=== PATIENT | female | born 1985 | race African-American/Black ===

== ENCOUNTER 2018-01-27 22:40 | Inpatient (IN) | payer MEDICAID ==
[~2018-01-27] VITALS: Ht 157.5 cm; Wt 63.0 kg
--- NOTE | 2018-01-27 23:11 | NUR ---
DR. JEFFERSON AT BEDSIDE FOR MSE.
[2018-01-27] MEDS ORDERED: DOCU-141 PO (23:15)
[2018-01-27] MEDS ORDERED: TRAZ-182 PO (23:15)
[2018-01-27] MEDS ORDERED: SERT50TA PO (23:15)
[2018-01-27] MEDS ORDERED: QUET400T PO (23:15)
[2018-01-27] MEDS ORDERED: FOLI1TAB16 PO (23:15)
[2018-01-27] MEDS ORDERED: FERR325T28 PO (23:15)
[2018-01-27] MEDS ORDERED: SERT100T PO (23:15)
[2018-01-27] MEDS ORDERED: ONDA4TAB5 PO (23:15)
[2018-01-27] MEDS ORDERED: HYDR4TAB4 PO (23:15)
[2018-01-27] MEDS ORDERED: DIPH50CA37 PO (23:15)
[2018-01-27] MEDS ORDERED: ONDANSETRON ODT 4 MG TAB.RAPDIS ONE (23:27)
[2018-01-27] MEDS ORDERED: diphenhydrAMINE 50 MG/1 ML VIAL ONE (23:27)
[2018-01-27] MEDS ORDERED: HYDROMORPHONE 2 MG/1 ML DISP.SYRIN ONE (23:27)
[2018-01-27] MEDS ORDERED: ONDANSETRON ODT 4 MG TAB.RAPDIS SL ONE (23:30)
[2018-01-27] MEDS ORDERED: HYDROMORPHONE 1 MG/1 ML DISP.SYRIN IM ONE (23:30)
[2018-01-27] MEDS ORDERED: diphenhydrAMINE 50 MG/1 ML VIAL IM ONE (23:30)
[2018-01-27] MEDS ORDERED: LORAZEPAM 0.5 MG TABLET PO ONE (23:45)
[2018-01-28] MEDS ORDERED: LORAZEPAM 1 MG TABLET ONE (00:05)
[2018-01-28] MEDS ORDERED: IV NORMAL SALINE 1000 ML BAG IV ONE (01:00)
[2018-01-28] MEDS ORDERED: HYDR500C2 PO (01:02)
[2018-01-28 01:19] LABS: *AMPHETAMINE, URINE NEGATIVE (NEGATIVE); *BARBITURATE, URINE NEGATIVE (NEGATIVE); *CANNABINOID, URINE NEGATIVE (NEGATIVE); *COCCAINE, URINE NEGATIVE (NEGATIVE); *OPIATE, URINE POSITIVE (NEGATIVE); *PHENCYCLIDINE SCREEN,URINE NEGATIVE (NEGATIVE)
[2018-01-28] MEDS ORDERED: diphenhydrAMINE 50 MG/1 ML VIAL ONE (01:54)
[2018-01-28] MEDS ORDERED: HYDROMORPHONE 2 MG/1 ML DISP.SYRIN ONE (01:54)
[2018-01-28] MEDS ORDERED: OLANZAPINE 5 MG TABLET ONE (01:55)
[2018-01-28] MEDS ORDERED: HYDROMORPHONE 1 MG/1 ML DISP.SYRIN IV ONE (02:00)
[2018-01-28] MEDS ORDERED: diphenhydrAMINE 50 MG/1 ML VIAL IV ONE (02:00)
[2018-01-28] MEDS ORDERED: ONDANSETRON IV *ER 4 MG/2 ML VIAL IV ONE (02:00)
[2018-01-28] MEDS ORDERED: OLANZAPINE 5 MG TABLET PO ONE (02:00)
[2018-01-28 02:02] LABS: BASOPHILS # (AUTO) 0.1 K/uL (0.0-8.0); BASOPHILS % (AUTO) 0.8 % (0.0-2.0); EOSINOPHILS # (AUTO) 0.2 K/uL (0.0-0.7); EOSINOPHILS % (AUTO) 2.2 % (0.0-7.0); HEMATOCRIT 29.8 % (31.2-41.9); HEMOGLOBIN 9.4 g/dL (10.9-14.3); LYMPHOCYTES # (AUTO) 2.9 K/uL (20.0-40.0); LYMPHOCYTES % (AUTO) 27.9 % (20.5-51.5); MEAN CORPUSCULAR HEMOGLOBIN 27.1 uug (24.7-32.8); MEAN CORPUSCULAR HGB CONC 32 g/dL (32.3-35.6); MEAN CORPUSCULAR VOLUME 85.7 fL (75.5-95.3); MONOCYTES # (AUTO) 0.6 K/uL (2.0-10.0); MONOCYTES % (AUTO) 5.7 % (0.0-11.0); NEUTROPHILS # (AUTO) 6.6 K/uL (1.8-8.9); NEUTROPHILS % (AUTO) 63.4 % (38.5-71.5); PLATELET COUNT (AUTO) 365 K/uL (179-408); RED BLOOD CELL COUNT(AUTO) 3.48 MIL/uL (3.63-4.92); WHITE BLOOD COUNT (AUTO) 10.5 K/uL (3.8-11.8)
[2018-01-28 02:12] LABS: CARBON DIOXIDE 24 mmol/L (21-32); CHLORIDE 106 mmol/L (98-107); CREATININE 0.9 mg/dL (0.6-1.3); GLUCOSE 83 mg/dL (74-106); POTASSIUM 3.8 mmol/L (3.5-5.1); UREA NITROGEN, BLOOD 13 mg/dL (7-18)
[2018-01-28 02:17] LABS: ALANINE AMINOTRANSFERASE 21 U/L (14-59); ALKALINE PHOSPHATASE 95 U/L (50-136); ASPARTATE AMINOTRANSFERASE 35 U/L (15-37); BILIRUBIN,DIRECT 0.1 mg/dL (0.0-0.2); BILIRUBIN,TOTAL 0.3 mg/dL (0.2-1.0); TOTAL PROTEIN, SERUM 7.5 g/dL (6.4-8.2)
[2018-01-28 02:18] LABS: ACETAMINOPHEN < 2.0 ug/mL (10-30)
[2018-01-28] MEDS ORDERED: IV NS 1000 ML 1,000 ML IV PRN ×2 (02:24→10:16)
[2018-01-28 02:25] LABS: THYROID STIMULATING HORMONE 3.005 mIU/mL (0.358-3.740)
[2018-01-28] MEDS ORDERED: ACETAMINOPHEN 325 MG TABLET PO PRN (02:30)
[2018-01-28] MEDS ORDERED: HYDROMORPHONE 1 MG/1 ML DISP.SYRIN IV PRN ×2 (02:30→10:30)
[2018-01-28] MEDS ORDERED: ONDANSETRON 4 MG/2 ML VIAL IV PRN (02:30)
[2018-01-28] MEDS ORDERED: HYDROCODONE/APAP 5-325MG TABLET PO PRN (02:30)
[2018-01-28] MEDS ORDERED: MAGNESIUM HYDROXIDE 30 ML LIQUID UDC PO PRN (02:30)
[2018-01-28] MEDS ORDERED: TEMAZEPAM 15 MG CAPSULE PO PRN (02:30)
[2018-01-28 02:31] LABS: ETHANOL < 3 MG/DL (0-0)
[2018-01-28] MEDS ORDERED: diphenhydrAMINE 50 MG CAPSULE PO PRN (03:00)
--- NOTE | 2018-01-28 03:00 | NUR ---
ADMITTED A 32 YEARS OLD FEMALE WITH DIAGNOSIS OF SICKLE CELL PAIN CRISIS. PATIENT OFF AND ON ALERT X1, MAINLY CONFUSED. ALOC. UNABLE TO ANSWER ANY QUESTIONS. IN NO ACUTE DISTRESS. NSR ON TELE AT 88/MIN. UNABLE TO KEEP TELE ON. ANXIOUS AND UNABLE TO SIT STILL. IV SITE ON LEFT FOOT INTACT AND PATENT. ROUTINE ADMISSION CARE DONE. PLAN OF CARE INITIATED. SAFETY MEASURE INITIATED AND CALL [place] WITHIN REACH.
--- NOTE | 2018-01-28 03:04 | NUR ---
Pt. admitted to TELE , under care of Dr. CAPPS [place] List completed. PT BECAME AGITATED WHEN ASKED TO TO DO BELONGINGS FROM INSIDE PURSE. NO CONTRABAND SEEN.
[2018-01-28] MEDS ORDERED: ONDANSETRON 4 MG/2 ML VIAL ONE (03:07)
[2018-01-28 03:55] LABS: *BILIRUBIN,URIN NEGATIVE (NEGATIVE); *BLOOD, URINE NEGATIVE (NEGATIVE); *CLARITY,URINE CLEAR (CLEAR); *COLOR,URINE YELLOW (YELLOW); *KETONES,URINE NEGATIVE (NEGATIVE); *PROTEIN,URINE 1+ (NEGATIVE); *UROBILINOGEN,URINE 0.2 E.U./dl (NORMAL); LEUKOCYTE ESTERASE ,URINE NEGATIVE (NEGATIVE); NITRITE, URINE NEGATIVE (NEGATIVE); PH,URINE 5.5 (5.0-8.0); UGLUCOSE NEGATIVE (NEGATIVE)
[2018-01-28 04:00] VITALS: BP 122/68
[2018-01-28 04:07] LABS: BACTERIA,URINE NONE SEEN /HPF (NONE SEEN); RBC,URINE 0-3 /HPF (0-3); SQUAMOUS EPITHELIAL CELL,UR MODERATE /HPF (NONE SEEN); WBC,URINE NONE SEEN /HPF (0-3)
--- NOTE | 2018-01-28 06:17 | NUR ---
Patient asleep, arouse to verbal and tactile stimuli but falls back to sleep again. In no acute distress. NSR on tele at 82/min. IV site on left foot intact and patent. IVF infusing. Safety measure maintained and call ma within reach.
[2018-01-28] MEDS ORDERED: PANTOPRAZOLE SODIUM 40 MG TABLET.DR PO SCH (07:00)
--- NOTE | 2018-01-28 08:00 | NUR ---
Pt groggy and sleeping intermittently. SNR on Monitor. Fall precaution implemented - bed alarm on. IV on left foot #22gauge intact. Call light is within reach.
[2018-01-28] MEDS ORDERED: HYDROMORPHONE 2 MG/1 ML DISP.SYRIN IV PRN ×2 (08:30)
[2018-01-28] MEDS ORDERED: FERROUS SULFATE 325 MG TABEC PO SCH (09:00)
[2018-01-28] MEDS ORDERED: OXYCODONE/APAP 5-325 MG TABLET PO PRN (10:30)
--- NOTE | 2018-01-28 10:30 | NUR ---
Pt more awake. PT continues to refuse lab draw even with further explanation of it's purpose. Call light is within reach.
[2018-01-28 10:37] LABS: EOSINOPHILS % (MANUAL) 2 % (0-8); LYMPHOCYTES % (MANUAL) 28 % (20-40); MONOCYTES % (MANUAL) 6 % (2-10); NEUTROPHILS % (MANUAL) 64 % (42-75)
[2018-01-28] MEDS: FOLIC ACID 1 MG TABLET PO SCH ×2 (11:53→16:53)
[2018-01-28] MEDS: DOCUSATE SODIUM 100 MG CAPSULE PO SCH ×2 (11:53→16:53)
[2018-01-28] MEDS: TRAZODONE 50 MG TABLET PO SCH ×2 (11:54→16:53)
[2018-01-28] MEDS: QUETIAPINE FUMARATE 200 MG TABLET PO SCH ×2 (11:54→16:54)
[2018-01-28] MEDS: HYDROXYUREA 500 MG CAPSULE PO SCH ×2 (11:55→16:53)
[2018-01-28] MEDS: HYDROMORPHONE 2 MG/1 ML DISP.SYRIN IV PRN ×2 (11:58→17:02)
[2018-01-28 12:00] VITALS: BP 109/66
--- NOTE | 2018-01-28 15:00 | NUR ---
ASSUMED CARE OF THIS PATIENT AT THIS TIME OBSERVED TO BE ASLEEP BUT IS EASILY AROUSABLE WITH IVF NORMAL SALINE AT 100ML/HR TO HER LEFT FOOT WITH NO S/S OF INFILTERATION AT THIS TIME.WILL CONTINUE TO OBSERVE AND PROVIDE COMFORT NEEDED.
[2018-01-28 16:15] VITALS: BP 100/68
--- NOTE | 2018-01-28 17:02 | NUR ---
PATIENT IS COMPLAINING OF SEVERE PAIN STATED IT 9 OUT OF 10 REQUESTED FOR HER DILAUDID BUT REFUSED TO TAKE HER ROUTINE REGULAR MEDICATIONS AT THIS TIME.DILAUDID GIVEN ORDERED HEPLOCK LEFT FOOT REMAINS INTACT AT THIS TIME WITH NS AT 100 ML/HR WITH NO S/S OF INFILTERATION NOTED.
[2018-01-28 19:00] VITALS: BP 104/59
--- NOTE | 2018-01-28 19:10 | NUR ---
RECEIVED SHIFT REPORT FROM LILIAN BOYD. PT RESTING IN BED. DENIES PAIN, C/P, SOB, N/V. BED IN LOW AND LOCKED POSITION WITH BILATERAL UPPER SIDERAILS UP. CALL LIGHT WITHIN REACH. IVF INFUSING NS 100 ML/HR VIA 22 G IN L FOOT. WILL CONTINUE TO MONITOR.
--- NOTE | 2018-01-28 19:40 | NUR ---
PT PRESENTS IN THE HALLWAY STATING SHE "WANTS TO LEAVE THE HOSPITAL". PT ADVISED OF RISKS INVOLVED WITH LEAVING AMA. PT STATES "I HAVE A FAMILY EMERGENCY AND I NEED TO LEAVE RIGHT NOW. MY RIDE IS HERE". SALOME CARTY NP, NOTIFIED OF PT'S DESIRE TO LEAVE AMA. 22 G IV ACCESS IN L FOOT REMOVED. PT REFUSED TO SIGN AMA FORM, STATING "MY RIDE IS HERE. I NEED TO LEAVE". PT SELF-AMBULATED OFF OF UNIT FLOOR AT 0. Addendum: 01/28/18 at 2002 by FUAD GARCIA RN ANA CHAUDHRY, NOTIFIED. Addendum: 01/28/18 at 2015 by FUAD GARCIA RN PT BELONGINGS TAKEN WITH PATIENT AT TIME OF AMA.
[2018-01-28] MEDS ORDERED: SERTRALINE HCL 50 MG TABLET PO SCH (21:00)
== END 2018-01-28 19:40 | disposition left against medical advice (07) | DRG 662 ==
LOC: ER 22:43 → TELE 01-28 02:40 → MED 01-28 10:56
PROVIDERS: ADMIT Hospitalist; ATTEND Nurse Practitioner Acute Care
DX: D57.00 Hb-SS disease with crisis, unspecified (principal); F32.9 Major depressive disorder, single episode, unspecified; F43.10 Post-traumatic stress disorder, unspecified; Z88.8 Allergy status to other drugs, medicaments and biological substances; Z79.899 Other long term (current) drug therapy; Z97.5 Presence of (intrauterine) contraceptive device; J45.909 Unspecified asthma, uncomplicated; R53.83 Other fatigue
CPT/HCPCS: 36415; 71045; 80307; 84443; 84703; 85025; 85730; 87086; 93005; A4663; G0480; G0480-TC; J1170; J1200; J2405; J7030; Q0162